=== PATIENT | male | born 1955 | race Caucasian/White ===

== ENCOUNTER → 2016-02-11 | Outpatient (CLI) | payer OTHER ==
--- NOTE | 2016-02-11 10:45 | CT ---
CT Chest Angiogram Clinical Indications: Abnormal finding on outside study. Evaluate for thoracic aortic aneurysm. Technique: Thinly collimated multidetector helical CT imaging was performed through the chest while 90 mL Isovue-370 were injected intravenously without complication. The images were then transferred to an independent workstation where multiplanar and three-dimensional reconstructions were performed by the interpreting physician and reviewed at multiple windows. Dose reduction techniques were utiliz ed. Findings: Chest: No pneumonia, pneumothorax, nodules or pleural effusions are present. Heart size is normal a nd there is no pericardial effusion. No adenopathy and no pulmonary masses are found. Incidental c alcified granulomas is noted at the right base. CT Pulmonary Angiogram: No intraluminal filling defects are seen in the pulmonary arterial system to suggest pulmonary embolus. The thoracic aorta has a normal contour without evidence of aneurysm or dissection. The aorta is measured in multiple locations. The ascending aorta varies between 36 and 37 mm. It tapers to 30 mm at the arch. The great vessels are unremarkable. The descending thoracic aort a measures 26 mm. The intraabdominal aorta is nonaneurysmal. Celiac axis, SMA, and right renal arteri es are patent. The origin of the left renal artery is widely patent. Impression: No evidence of thoracic aortic aneurysm.
== END ==
LOC: CIMAGING 09:26
PROVIDERS: ATTEND Internal Medicine Cardiovascular Disease
DX: R94.30 Abnormal result of cardiovascular function study, unspecified (principal)
CPT/HCPCS: 71275-PO